=== PATIENT | female | born 1985 ===

== ENCOUNTER 2019-02-05 10:59 | Emergency (ER) | payer OTHER ==
[~2019-02-05] VITALS: Ht 170.2 cm; Wt 72.6 kg
[~2019-02-05 10:59] MED LIST: DOLOGESIC CAPSU1 CAP PO; GILTUSS LIQUID237 M1 PO; TYLENOL EXTRA500 MG PO
== END 2019-02-05 13:06 | disposition home or self-care (01) ==
LOC: ER 10:59
DX: S50.862A Insect bite (nonvenomous) of left forearm, initial encounter (principal); L03.818 Cellulitis of other sites; W57.XXXA Bitten or stung by nonvenomous insect and other nonvenomous arthropods, initial encounter; Y93.89 Activity, other specified; Y92.89 Other specified places as the place of occurrence of the external cause; Y99.8 Other external cause status